=== PATIENT | female | born 1950 | race Caucasian/White ===

== ENCOUNTER 2024-07-10 09:02 | Outpatient (CLI) | payer MEDICARE | END 2024-07-10 09:03 | disposition home or self-care (01) | LOC: CSHMRI 09:02 | PROVIDERS: ATTEND Student in an Organized Health Care Education/Training Program | DX: M75.81 Other shoulder lesions, right shoulder (principal); M75.101 Unspecified rotator cuff tear or rupture of right shoulder, not specified as traumatic ==